=== PATIENT | male | born 1965 | race Caucasian/White ===

== ENCOUNTER → 2016-05-13 | Outpatient (REF) | payer OTHER ==
[2016-05-13 11:59] LABS: ALBUMIN 4.1 GM/DL (3.2-5.2); ALBUMIN/GLOBULIN RATIO 1.41 (1.00-1.93); ALKALINE PHOSPHATASE 85 U/L (45-117); ALT/SGPT 54 U/L (12-78); ANION GAP 9 MEQ/L (8-16); AST/SGOT 26 U/L (15-37); BILIRUBIN,TOTAL 0.6 MG/DL (0.2-1.0); BLOOD UREA NITROGEN 22 MG/DL (7-18); CALCIUM LEVEL 8.6 MG/DL (8.5-10.1); CARBON DIOXIDE LEVEL 31 MEQ/L (21-32); CHLORIDE LEVEL 103 MEQ/L (98-107); CHOLESTEROL LEVEL 209 MG/DL (<200); CREATININE FOR GFR 0.94 MG/DL (0.70-1.30); GLOMERULAR FILTRATION RATE > 60.0 (>56); GLUCOSE, FASTING 107 MG/DL (70-105); POTASSIUM SERUM 4.1 MEQ/L (3.5-5.1); SODIUM LEVEL 143 MEQ/L (136-145); TRIGLYCERIDES LEVEL 164 MG/DL (<150)
== END ==
LOC: M SFHCCLAY 07:02
PROVIDERS: ATTEND Family Medicine
DX: E78.2 Mixed hyperlipidemia (principal); E03.9 Hypothyroidism, unspecified

== ENCOUNTER → 2016-11-20 | Outpatient (REF) | payer OTHER ==
[2016-11-20 12:20] LABS: ALBUMIN/GLOBULIN RATIO 1.21 (1.00-1.93); ALKALINE PHOSPHATASE 84 U/L (45-117); ALT/SGPT 62 U/L (12-78); ANION GAP 7 MEQ/L (8-16); AST/SGOT 24 U/L (15-37); BILIRUBIN,TOTAL 0.6 MG/DL (0.2-1.0); BLOOD UREA NITROGEN 17 MG/DL (7-18); CALCIUM LEVEL 8.8 MG/DL (8.5-10.1); CARBON DIOXIDE LEVEL 31 MEQ/L (21-32); CHLORIDE LEVEL 103 MEQ/L (98-107); CHOLESTEROL LEVEL 208 MG/DL (<200); CREATININE FOR GFR 0.93 MG/DL (0.70-1.30); GLOMERULAR FILTRATION RATE > 60.0 (>56); GLUCOSE, FASTING 102 MG/DL (70-105); POTASSIUM SERUM 4.1 MEQ/L (3.5-5.1); SODIUM LEVEL 141 MEQ/L (136-145); TOTAL PROTEIN 7.3 GM/DL (6.4-8.2); TRIGLYCERIDES LEVEL 207 MG/DL (<150)
== END ==
LOC: M SFHCCLAY 07:05
PROVIDERS: ATTEND Family Medicine
DX: E78.2 Mixed hyperlipidemia (principal); E03.9 Hypothyroidism, unspecified

== ENCOUNTER → 2017-12-16 | Outpatient (REF) | payer OTHER ==
[2017-12-16 13:16] LABS: BASO % 0.4 % (0.0-1.0); EOS # 0.1 10^3/uL (0.0-0.50); EOS % 2.4 % (0.0-3.0); HEMOGLOBIN 15.3 g/dl (13.5-17.5); IMMATURE GRANULOCYTE % 0.4 % (0-3.0); LYMPH # 1.5 10^3/uL (1.5-4.5); MEAN CORPUSCULAR HEMOGLOBIN 31.3 pg (27.0-33.0); MEAN CORPUSCULAR HGB CONC 34.8 g/dl (32.0-36.5); MONO # 0.4 10^3/uL (0.0-0.8); MONO % 7.9 % (0.0-5.0); NEUTROPHILS # 3.4 10^3/uL (1.8-7.7); NEUTROPHILS % 61.9 % (36.0-66.0); PLATELET COUNT, AUTOMATED 189 10^3/uL (150-450); RED BLOOD COUNT 4.89 10^6/uL (4.30-6.10); RED CELL DISTRIBUTION WIDTH 12.4 % (11.5-14.5); WHITE BLOOD COUNT 5.5 10^3/uL (4.0-10.0)
[2017-12-16 13:35] LABS: ALBUMIN 4.2 GM/DL (3.2-5.2); ALBUMIN/GLOBULIN RATIO 1.45 (1.00-1.93); ALKALINE PHOSPHATASE 76 U/L (45-117); ALT/SGPT 52 U/L (12-78); ANION GAP 8 MEQ/L (8-16); AST/SGOT 24 U/L (7-37); BILIRUBIN,TOTAL 0.7 MG/DL (0.2-1.0); BLOOD UREA NITROGEN 24 MG/DL (7-18); CALCIUM LEVEL 9.2 MG/DL (8.5-10.1); CARBON DIOXIDE LEVEL 31 MEQ/L (21-32); CHLORIDE LEVEL 103 MEQ/L (98-107); CHOLESTEROL LEVEL 207 MG/DL (<200); CHOLESTEROL RISK RATIO 5.447 (<5); CREATININE FOR GFR 0.93 MG/DL (0.70-1.30); GLOMERULAR FILTRATION RATE > 60.0 (>56); GLUCOSE, FASTING 102 MG/DL (70-100); HDL CHOLESTEROL 38 MG/DL (>40); IRON (FE) 130 UG/DL (65-175); LDL CHOLESTEROL 138 MG/DL (<100); NON-HDL-C 169 MG/DL; SODIUM LEVEL 142 MEQ/L (136-145); TOTAL PROTEIN 7.1 GM/DL (6.4-8.2); TRIGLYCERIDES LEVEL 153 MG/DL (<150)
== END ==
LOC: M SFHCCLAY 06:58
DX: D64.9 Anemia, unspecified (principal); E78.2 Mixed hyperlipidemia; E03.9 Hypothyroidism, unspecified
CPT/HCPCS: 83540

== ENCOUNTER → 2018-06-10 | Outpatient (REF) | payer OTHER ==
[2018-06-10 11:22] LABS: BASO % 0.5 % (0.0-1.0); EOS # 0.1 10^3/uL (0.0-0.50); EOS % 1.4 % (0.0-3.0); HEMATOCRIT 44.1 % (42.0-52.0); HEMOGLOBIN 15.4 g/dl (13.5-17.5); LYMPH # 1.3 10^3/uL (1.5-4.5); LYMPH % 21.6 % (24.0-44.0); MEAN CORPUSCULAR HEMOGLOBIN 30.9 pg (27.0-33.0); MEAN CORPUSCULAR HGB CONC 34.9 g/dl (32.0-36.5); MEAN CORPUSCULAR VOLUME 88.4 fl (80.0-96.0); MONO # 0.4 10^3/uL (0.0-0.8); MONO % 7.1 % (0.0-5.0); NEUTROPHILS # 4.1 10^3/uL (1.8-7.7); NEUTROPHILS % 69.2 % (36.0-66.0); PLATELET COUNT, AUTOMATED 176 10^3/uL (150-450); RED BLOOD COUNT 4.99 10^6/uL (4.30-6.10); WHITE BLOOD COUNT 5.9 10^3/uL (4.0-10.0)
[2018-06-10 11:39] LABS: ALT/SGPT 37 U/L (12-78); BILIRUBIN,TOTAL 0.7 MG/DL (0.2-1.0); BLOOD UREA NITROGEN 19 MG/DL (7-18); CALCIUM LEVEL 8.8 MG/DL (8.5-10.1); CARBON DIOXIDE LEVEL 28 MEQ/L (21-32); CHLORIDE LEVEL 106 MEQ/L (98-107); CHOLESTEROL LEVEL 203 MG/DL (<200); CHOLESTEROL RISK RATIO 5.075 (<5); CREATININE FOR GFR 0.97 MG/DL (0.70-1.30); GLOMERULAR FILTRATION RATE > 60.0 (>56); GLUCOSE, FASTING 112 MG/DL (70-100); HDL CHOLESTEROL 40 MG/DL (>40); IRON (FE) 113 UG/DL (65-175); LDL CHOLESTEROL 135 MG/DL (<100); NON-HDL-C 163 MG/DL; POTASSIUM SERUM 3.9 MEQ/L (3.5-5.1); SODIUM LEVEL 141 MEQ/L (136-145); TRIGLYCERIDES LEVEL 140 MG/DL (<150)
== END ==
LOC: M SFHCCLAY 07:12
PROVIDERS: ATTEND Family Medicine
DX: D64.9 Anemia, unspecified (principal); E78.2 Mixed hyperlipidemia; E03.9 Hypothyroidism, unspecified

== ENCOUNTER → 2018-12-05 | Outpatient (REF) | payer OTHER ==
[2018-12-05 12:05] LABS: BASO % 0.5 % (0.0-1.0); EOS # 0.2 10^3/uL (0.0-0.5); EOS % 2.5 % (0.0-3.0); HEMATOCRIT 44.1 % (42.0-52.0); HEMOGLOBIN 15.3 g/dl (13.5-17.5); LYMPH # 1.5 10^3/uL (1.5-5.0); LYMPH % 25.5 % (24.0-44.0); MEAN CORPUSCULAR HEMOGLOBIN 31.1 pg (27.0-33.0); MEAN CORPUSCULAR HGB CONC 34.7 g/dl (32.0-36.5); MEAN CORPUSCULAR VOLUME 89.6 fl (80.0-96.0); MONO # 0.5 10^3/uL (0.0-0.8); MONO % 8.9 % (0.0-5.0); NEUTROPHILS # 3.7 10^3/uL (1.5-8.5); NEUTROPHILS % 62.3 % (36.0-66.0); PLATELET COUNT, AUTOMATED 193 10^3/uL (150-450); RED BLOOD COUNT 4.92 10^6/uL (4.30-6.10); WHITE BLOOD COUNT 5.9 10^3/uL (4.0-10.0)
[2018-12-05 12:20] LABS: THYROID STIMULATING HORMONE 1.79 uIU/ML (0.358-3.740)
== END ==
LOC: M SFHCCLAY 06:52
PROVIDERS: ATTEND Family Medicine
DX: D64.9 Anemia, unspecified (principal); E03.9 Hypothyroidism, unspecified

== ENCOUNTER → 2019-04-21 | Outpatient (CLI) | payer OTHER ==
[2019-04-21 17:08] LABS: BASO % 0.2 % (0.0-1.0); EOS # 0.1 10^3/uL (0.0-0.5); EOS % 0.5 % (0.0-3.0); HEMATOCRIT 47.2 % (42.0-52.0); HEMOGLOBIN 16.4 g/dl (13.5-17.5); LYMPH # 1.5 10^3/uL (1.5-5.0); LYMPH % 15.7 % (24.0-44.0); MEAN CORPUSCULAR HEMOGLOBIN 30.9 pg (27.0-33.0); MEAN CORPUSCULAR HGB CONC 34.7 g/dl (32.0-36.5); MEAN CORPUSCULAR VOLUME 88.9 fl (80.0-96.0); MONO # 0.5 10^3/uL (0.0-0.8); MONO % 5.6 % (0.0-5.0); NEUTROPHILS # 7.1 10^3/uL (1.5-8.5); NEUTROPHILS % 77.7 % (36.0-66.0); PLATELET COUNT, AUTOMATED 223 10^3/uL (150-450); RED BLOOD COUNT 5.31 10^6/uL (4.30-6.10); WHITE BLOOD COUNT 9.2 10^3/uL (4.0-10.0)
[2019-04-21 17:28] LABS: C REACTIVE PROTEIN QUANTITATIV < 0.30 MG/DL (0.00-0.30); URIC ACID 5.3 MG/DL (3.5-7.2)
[2019-04-25 00:07] LABS: Lyme Disease IgG/IgM Antibodie <0.91 ISR (0.00-0.90); Lyme Disease IgM Ab Quantitati <0.80 index (0.00-0.79)
== END ==
LOC: M LAB 15:37
PROVIDERS: ATTEND Family Medicine
DX: M25.561 Pain in right knee (principal)

== ENCOUNTER → 2019-04-21 | Outpatient (CLI) | payer OTHER ==
--- NOTE | 2019-04-21 14:42 | REP ---
Clinical: Acute right knee pain. Technique: AP, lateral, bilateral oblique and sunrise views of the right knee. Findings: Generalized age-related changes are appreciated including cortical irregularity to the femoral condyles and minimally increased sclerosis to the tibial plateau and posterior patellar margin. No significant osteophytosis. No acute fracture dislocation. Incidental flabella noted. No effusion. Impression: Generalized age-related changes to the right knee. No obvious acute process. Electronically Signed by Jose Miner MD 04/21/2019 02:34 P
== END ==
LOC: M CLY 14:10
PROVIDERS: ATTEND Family Medicine
DX: M17.11 Unilateral primary osteoarthritis, right knee (principal)

== ENCOUNTER → 2019-10-10 | Outpatient (REF) | payer OTHER ==
[2019-11-16 14:32] LABS: ALBUMIN 4.1 GM/DL (3.2-5.2); ALT/SGPT 39 U/L (12-78); BILIRUBIN,TOTAL 0.2 MG/DL (0.2-1.0); BLOOD UREA NITROGEN 22 MG/DL (7-18); CALCIUM LEVEL 8.8 MG/DL (8.5-10.1); CARBON DIOXIDE LEVEL 31 MEQ/L (21-32); CHLORIDE LEVEL 109 MEQ/L (98-107); CREATININE FOR GFR 0.91 MG/DL (0.70-1.30); GLOMERULAR FILTRATION RATE > 60.0 (>56); GLUCOSE, FASTING 102 MG/DL (70-100); POTASSIUM SERUM 4.2 MEQ/L (3.5-5.1); SODIUM LEVEL 143 MEQ/L (136-145); TOTAL PROTEIN 7.1 GM/DL (6.4-8.2)
== END ==
LOC: M SFHCCLAY 07:55
PROVIDERS: ATTEND Family Medicine
DX: E03.9 Hypothyroidism, unspecified (principal); E78.00 Pure hypercholesterolemia, unspecified

== ENCOUNTER → 2020-04-09 | Outpatient (REF) | payer OTHER ==
[2020-04-09 11:59] LABS: BASO % 0.4 % (0.0-1.0); EOS # 0.1 10^3/uL (0.0-0.5); EOS % 1.6 % (0.0-3.0); HEMATOCRIT 43.9 % (42.0-52.0); HEMOGLOBIN 14.8 g/dl (13.5-17.5); LYMPH # 1.2 10^3/uL (1.5-5.0); LYMPH % 20.6 % (24.0-44.0); MEAN CORPUSCULAR HGB CONC 33.7 g/dl (32.0-36.5); MEAN CORPUSCULAR VOLUME 88.9 fl (80.0-96.0); MONO # 0.5 10^3/uL (0.0-0.8); MONO % 8.3 % (0.0-5.0); NEUTROPHILS # 3.9 10^3/uL (1.5-8.5); NEUTROPHILS % 68.7 % (36.0-66.0); PLATELET COUNT, AUTOMATED 191 10^3/uL (150-450); RED BLOOD COUNT 4.94 10^6/uL (4.30-6.10); WHITE BLOOD COUNT 5.6 10^3/uL (4.0-10.0)
[2020-04-09 12:40] LABS: ALBUMIN 4.1 GM/DL (3.2-5.2); ALT/SGPT 43 U/L (12-78); BILIRUBIN,TOTAL 0.4 MG/DL (0.2-1.0); BLOOD UREA NITROGEN 26 MG/DL (7-18); CALCIUM LEVEL 9.7 MG/DL (8.5-10.1); CARBON DIOXIDE LEVEL 30 MEQ/L (21-32); CHLORIDE LEVEL 105 MEQ/L (98-107); CHOLESTEROL LEVEL 217 MG/DL (<200); CHOLESTEROL RISK RATIO 5.292 (<5); CREATININE FOR GFR 0.91 MG/DL (0.70-1.30); GLOMERULAR FILTRATION RATE > 60.0 (>56); GLUCOSE, FASTING 118 MG/DL (70-100); HDL CHOLESTEROL 41 MG/DL (>40); IRON (FE) 79 UG/DL (65-175); LDL CHOLESTEROL 153 MG/DL (<100); NON-HDL-C 176 MG/DL; POTASSIUM SERUM 4.4 MEQ/L (3.5-5.1); SODIUM LEVEL 141 MEQ/L (136-145); TOTAL PROTEIN 7.2 GM/DL (6.4-8.2); TRIGLYCERIDES LEVEL 115 MG/DL (<150)
== END ==
LOC: M SFHCCLAY 08:06
PROVIDERS: ATTEND Family Medicine
DX: E78.2 Mixed hyperlipidemia (principal); E03.9 Hypothyroidism, unspecified; D64.9 Anemia, unspecified

== ENCOUNTER → 2020-10-11 | Outpatient (REF) | payer OTHER ==
[2020-10-11 15:59] LABS: BASO % 0.3 % (0.0-1.0); EOS # 0.1 10^3/uL (0.0-0.5); EOS % 1.4 % (0.0-3.0); HEMATOCRIT 45.9 % (42.0-52.0); HEMOGLOBIN 15.5 g/dl (13.5-17.5); LYMPH # 1.5 10^3/uL (1.5-5.0); LYMPH % 24.2 % (24.0-44.0); MEAN CORPUSCULAR HEMOGLOBIN 30.1 pg (27.0-33.0); MEAN CORPUSCULAR HGB CONC 33.8 g/dl (32.0-36.5); MEAN CORPUSCULAR VOLUME 89.1 fl (80.0-96.0); MONO # 0.5 10^3/uL (0.0-0.8); MONO % 7.2 % (2.0-8.0); NEUTROPHILS # 4.2 10^3/uL (1.5-8.5); NEUTROPHILS % 66.4 % (36.0-66.0); PLATELET COUNT, AUTOMATED 217 10^3/uL (150-450); RED BLOOD COUNT 5.15 10^6/uL (4.30-6.10); WHITE BLOOD COUNT 6.4 10^3/uL (4.0-10.0)
[2020-10-11 16:17] LABS: HEMOGLOBIN A1c 5.5 %
[2020-10-11 16:41] LABS: ALBUMIN 4.2 GM/DL (3.2-5.2); ALT/SGPT 48 U/L (12-78); BILIRUBIN,TOTAL 0.5 MG/DL (0.2-1.0); BLOOD UREA NITROGEN 29 MG/DL (7-18); CALCIUM LEVEL 9.3 MG/DL (8.5-10.1); CARBON DIOXIDE LEVEL 32 MEQ/L (21-32); CHLORIDE LEVEL 105 MEQ/L (98-107); CHOLESTEROL LEVEL 212 MG/DL (<200); CHOLESTEROL RISK RATIO 5.047 (<5); CREATININE FOR GFR 0.94 MG/DL (0.70-1.30); GLOMERULAR FILTRATION RATE > 60.0 (>56); GLUCOSE, FASTING 114 MG/DL (70-100); HDL CHOLESTEROL 42 MG/DL (>40); IRON (FE) 88 UG/DL (65-175); LDL CHOLESTEROL 146 MG/DL (<100); NON-HDL-C 170 MG/DL; POTASSIUM SERUM 4.6 MEQ/L (3.5-5.1); SODIUM LEVEL 142 MEQ/L (136-145); TOTAL PROTEIN 7.5 GM/DL (6.4-8.2); TRIGLYCERIDES LEVEL 119 MG/DL (<150)
== END ==
LOC: M SFHCCLAY 08:00
PROVIDERS: ATTEND Family Medicine
DX: D64.9 Anemia, unspecified (principal); I10 Essential (primary) hypertension; R73.01 Impaired fasting glucose; E03.9 Hypothyroidism, unspecified

== ENCOUNTER → 2021-04-17 | Outpatient (REF) | payer OTHER ==
[2021-04-17 13:00] LABS: BASO % 0.4 % (0.0-1.0); EOS # 0.1 10^3/uL (0.0-0.5); EOS % 1.6 % (0.0-3.0); HEMATOCRIT 44.9 % (42.0-52.0); HEMOGLOBIN 15.1 g/dl (13.5-17.5); LYMPH # 1.5 10^3/uL (1.5-5.0); LYMPH % 21.4 % (24.0-44.0); MEAN CORPUSCULAR HEMOGLOBIN 29.8 pg (27.0-33.0); MEAN CORPUSCULAR HGB CONC 33.6 g/dl (32.0-36.5); MEAN CORPUSCULAR VOLUME 88.7 fl (80.0-96.0); MONO # 0.5 10^3/uL (0.0-0.8); MONO % 7.1 % (2.0-8.0); NEUTROPHILS # 4.7 10^3/uL (1.5-8.5); NEUTROPHILS % 69.4 % (36.0-66.0); PLATELET COUNT, AUTOMATED 232 10^3/uL (150-450); RED BLOOD COUNT 5.06 10^6/uL (4.30-6.10); WHITE BLOOD COUNT 6.8 10^3/uL (4.0-10.0)
[2021-04-17 13:36] LABS: HEMOGLOBIN A1c 5.4 %
[2021-04-17 13:37] LABS: ALBUMIN 3.8 GM/DL (3.2-5.2); ALT/SGPT 45 U/L (12-78); BILIRUBIN,TOTAL 0.7 MG/DL (0.2-1.0); BLOOD UREA NITROGEN 27 MG/DL (7-18); CALCIUM LEVEL 9.1 MG/DL (8.5-10.1); CARBON DIOXIDE LEVEL 29 MEQ/L (21-32); CHLORIDE LEVEL 104 MEQ/L (98-107); CHOLESTEROL LEVEL 179 MG/DL (<200); CHOLESTEROL RISK RATIO 3.977 (<5); CREATININE FOR GFR 0.98 MG/DL (0.70-1.30); GLOMERULAR FILTRATION RATE > 60.0 (>56); GLUCOSE, FASTING 100 MG/DL (70-100); HDL CHOLESTEROL 45 MG/DL (>40); IRON (FE) 121 UG/DL (65-175); LDL CHOLESTEROL 112 MG/DL (<100); NON-HDL-C 134 MG/DL; POTASSIUM SERUM 4.5 MEQ/L (3.5-5.1); SODIUM LEVEL 140 MEQ/L (136-145); TOTAL PROTEIN 7.2 GM/DL (6.4-8.2); TRIGLYCERIDES LEVEL 109 MG/DL (<150)
== END ==
LOC: M SFHCCLAY 07:53
PROVIDERS: ATTEND Family Medicine
DX: D64.9 Anemia, unspecified (principal); R73.01 Impaired fasting glucose; E03.9 Hypothyroidism, unspecified; E78.2 Mixed hyperlipidemia

== ENCOUNTER → 2021-10-01 | Outpatient (CLI) | payer OTHER ==
[~2021-10-01] MED LIST: CHLO125TA PO; INDO50CA91 PO; LEVO75TA4 PO; VITA500C24 PO
== END ==
LOC: M LABSMTC 09:11
PROVIDERS: ATTEND Anesthesiology
DX: Z01.812 Encounter for preprocedural laboratory examination (principal); Z20.822 Contact with and (suspected) exposure to COVID-19

== ENCOUNTER 2021-10-06 10:28 | Day surgery (SDC) | payer OTHER ==
[~2021-10-06] VITALS: Ht 167.6 cm; Wt 100.6 kg
[~2021-10-06 10:28] MED LIST changes: +NS 1,000 ML IV ONE
[2021-10-06] MEDS ORDERED: LIDOCAINE 2% 100MG/5ML SDV (FOR ANES.) As Ordered ONE (11:46)
[2021-10-06] MEDS ORDERED: propofoL 200 MG/20 ML VIAL As Ordered ONE (11:46)
[2021-10-06 12:20] VITALS: BP 135/77
== END 2021-10-06 12:25 | disposition home or self-care (01) ==
LOC: M OPP 10:28
PROVIDERS: ATTEND Internal Medicine Gastroenterology
DX: Z12.11 Encounter for screening for malignant neoplasm of colon (principal); K52.832 Lymphocytic colitis; K64.0 First degree hemorrhoids; K57.30 Diverticulosis of large intestine without perforation or abscess without bleeding; K63.89 Other specified diseases of intestine; I10 Essential (primary) hypertension; E03.9 Hypothyroidism, unspecified; M19.90 Unspecified osteoarthritis, unspecified site; J45.909 Unspecified asthma, uncomplicated; F17.220 Nicotine dependence, chewing tobacco, uncomplicated; Z79.899 Other long term (current) drug therapy

== ENCOUNTER → 2021-10-16 | Outpatient (REF) | payer OTHER ==
[~2021-10-16] MED LIST changes: -NS 1,000 ML IV ONE
[2021-10-16 12:37] LABS: ALBUMIN 3.9 GM/DL (3.2-5.2); ALT/SGPT 48 U/L (12-78); BILIRUBIN,TOTAL 0.7 MG/DL (0.2-1.0); BLOOD UREA NITROGEN 26 MG/DL (7-18); CALCIUM LEVEL 9.2 MG/DL (8.5-10.1); CARBON DIOXIDE LEVEL 31 MEQ/L (21-32); CHLORIDE LEVEL 102 MEQ/L (98-107); CREATININE FOR GFR 0.94 MG/DL (0.70-1.30); GLOMERULAR FILTRATION RATE > 60.0 (>56); GLUCOSE, FASTING 133 MG/DL (70-100); POTASSIUM SERUM 3.6 MEQ/L (3.5-5.1); SODIUM LEVEL 138 MEQ/L (136-145); TOTAL PROTEIN 7.6 GM/DL (6.4-8.2)
== END ==
LOC: M SFHCCLAY 07:38
PROVIDERS: ATTEND Family Medicine
DX: E03.9 Hypothyroidism, unspecified (principal); I10 Essential (primary) hypertension

== ENCOUNTER → 2022-04-09 | Outpatient (REF) | payer OTHER ==
[2022-04-09 12:37] LABS: BASO % 0.7 % (0.0-1.0); EOS # 0.1 10^3/uL (0.0-0.5); EOS % 1.8 % (0.0-3.0); HEMATOCRIT 45.8 % (42.0-52.0); HEMOGLOBIN 15.7 g/dl (13.5-17.5); LYMPH # 1.3 10^3/uL (1.5-5.0); LYMPH % 20.9 % (24.0-44.0); MEAN CORPUSCULAR HEMOGLOBIN 30.4 pg (27.0-33.0); MEAN CORPUSCULAR HGB CONC 34.3 g/dl (32.0-36.5); MEAN CORPUSCULAR VOLUME 88.8 fl (80.0-96.0); MONO # 0.5 10^3/uL (0.0-0.8); MONO % 7.5 % (2.0-8.0); NEUTROPHILS # 4.1 10^3/uL (1.5-8.5); NEUTROPHILS % 68.8 % (36.0-66.0); PLATELET COUNT, AUTOMATED 214 10^3/uL (150-450); RED BLOOD COUNT 5.16 10^6/uL (4.30-6.10)
[2022-04-09 12:57] LABS: IRON (FE) 107 UG/DL (65-175)
[2022-04-09 12:58] LABS: ALKALINE PHOSPHATASE 93 U/L (46-116); ALT/SGPT 42 U/L (7.0-40); AST/SGOT 29 U/L (<34); BILIRUBIN,TOTAL 0.8 MG/DL (0.3-1.2); BLOOD UREA NITROGEN 22 MG/DL (9-23); CALCIUM LEVEL 9.2 MG/DL (8.5-10.1); CARBON DIOXIDE LEVEL 31 MMOL/L (20-31); CHLORIDE LEVEL 101 MMOL/L (98-107); CHOLESTEROL LEVEL 200 MG/DL (<200); CREATININE FOR GFR 0.82 MG/DL (0.70-1.30); GLOMERULAR FILTRATION RATE > 60.0 (>56); GLUCOSE, FASTING 123 MG/DL (60-100); HDL CHOLESTEROL 42.5 MG/DL (>40); LDL CHOLESTEROL 132.3 MG/DL (<100); NON-HDL-C 158 MG/DL; POTASSIUM SERUM 4.1 MMOL/L (3.5-5.1); SODIUM LEVEL 139 MMOL/L (136-145); TOTAL PROTEIN 7.3 G/DL (5.7-8.2); TRIGLYCERIDES LEVEL 126 MG/DL (<150)
[2022-04-09 14:10] LABS: THYROID STIMULATING HORMONE 1.194 uIU/ML (0.55-4.78)
[2022-04-09 14:51] LABS: HEMOGLOBIN A1c 5.3 % (4.0-6.0)
== END ==
LOC: M SFHCCLAY 09:13
PROVIDERS: ATTEND Family Medicine
DX: I10 Essential (primary) hypertension (principal); E03.9 Hypothyroidism, unspecified; E78.2 Mixed hyperlipidemia; R73.01 Impaired fasting glucose; D64.9 Anemia, unspecified

== ENCOUNTER → 2022-10-06 | Outpatient (REF) | payer OTHER ==
[2022-10-06 12:08] LABS: HEMATOCRIT 44.5 % (42.0-52.0); HEMOGLOBIN 15.1 g/dl (13.5-17.5); MEAN CORPUSCULAR HEMOGLOBIN 29.8 pg (27.0-33.0); MEAN CORPUSCULAR HGB CONC 33.9 g/dl (32.0-36.5); MEAN CORPUSCULAR VOLUME 87.9 fl (80.0-96.0); PLATELET COUNT, AUTOMATED 207 10^3/uL (150-450); RED BLOOD COUNT 5.06 10^6/uL (4.30-6.10); WHITE BLOOD COUNT 5.9 10^3/uL (4.0-10.0)
[2022-10-06 12:13] LABS: ALBUMIN 4.2 G/DL (3.2-5.2); ALKALINE PHOSPHATASE 95 U/L (46-116); ALT/SGPT 36 U/L (7.0-40); AST/SGOT 17 U/L (<34); BILIRUBIN,TOTAL 0.7 MG/DL (0.3-1.2); BLOOD UREA NITROGEN 25 MG/DL (9-23); CALCIUM LEVEL 9.5 MG/DL (8.5-10.1); CARBON DIOXIDE LEVEL 32 MMOL/L (20-31); CHLORIDE LEVEL 102 MMOL/L (98-107); CHOLESTEROL LEVEL 196 MG/DL (<200); CHOLESTEROL RISK RATIO 5.06 (<5); GLOMERULAR FILTRATION RATE > 60.0 (>56); GLUCOSE, FASTING 104 MG/DL (60-100); HDL CHOLESTEROL 38.7 MG/DL (>40); LDL CHOLESTEROL 126.5 MG/DL (<100); NON-HDL-C 157.3 MG/DL; POTASSIUM SERUM 4.2 MMOL/L (3.5-5.1); SODIUM LEVEL 140 MMOL/L (136-145); THYROID STIMULATING HORMONE 1.823 uIU/ML (0.55-4.78); TOTAL PROTEIN 7.1 G/DL (5.7-8.2); TRIGLYCERIDES LEVEL 154 MG/DL (<150)
== END ==
LOC: M SFHCCLAY 07:49
PROVIDERS: ATTEND Family Medicine
DX: D64.9 Anemia, unspecified (principal); E78.2 Mixed hyperlipidemia; E03.9 Hypothyroidism, unspecified

== ENCOUNTER → 2023-04-09 | Outpatient (REF) | payer OTHER ==
[2023-04-09 11:46] LABS: HEMATOCRIT 46.4 % (42.0-52.0); MEAN CORPUSCULAR HEMOGLOBIN 30.1 pg (27.0-33.0); MEAN CORPUSCULAR HGB CONC 34.5 g/dl (32.0-36.5); MEAN CORPUSCULAR VOLUME 87.2 fl (80.0-96.0); PLATELET COUNT, AUTOMATED 220 10^3/uL (150-450); RED BLOOD COUNT 5.32 10^6/uL (4.30-6.10); WHITE BLOOD COUNT 5.9 10^3/uL (4.0-10.0)
[2023-04-09 12:07] LABS: HEMOGLOBIN A1c 5.6 % (4.0-6.0)
[2023-04-09 12:10] LABS: IRON (FE) 89 UG/DL (65-175)
[2023-04-09 12:13] LABS: ALKALINE PHOSPHATASE 101 U/L (46-116); ALT/SGPT 38 U/L (7.0-40); AST/SGOT 22 U/L (<34); BILIRUBIN,TOTAL 0.8 MG/DL (0.3-1.2); BLOOD UREA NITROGEN 26 MG/DL (9-23); CALCIUM LEVEL 9.6 MG/DL (8.5-10.1); CARBON DIOXIDE LEVEL 30 MMOL/L (20-31); CHLORIDE LEVEL 101 MMOL/L (98-107); CHOLESTEROL LEVEL 207 MG/DL (<200); CHOLESTEROL RISK RATIO 4.35 (<5); CREATININE FOR GFR 0.84 MG/DL (0.70-1.30); GLOMERULAR FILTRATION RATE > 60.0 (>56); GLUCOSE, FASTING 128 MG/DL (60-100); HDL CHOLESTEROL 47.5 MG/DL (>40); LDL CHOLESTEROL 133.1 MG/DL (<100); NON-HDL-C 159.5 MG/DL; POTASSIUM SERUM 4.2 MMOL/L (3.5-5.1); SODIUM LEVEL 136 MMOL/L (136-145); THYROID STIMULATING HORMONE 1.981 uIU/ML (0.55-4.78); TOTAL PROTEIN 7.5 G/DL (5.7-8.2); TRIGLYCERIDES LEVEL 132 MG/DL (<150)
== END ==
LOC: M SFHCCLAY 08:08
PROVIDERS: ATTEND Family Medicine
DX: I10 Essential (primary) hypertension (principal); E03.9 Hypothyroidism, unspecified; E78.2 Mixed hyperlipidemia; D64.9 Anemia, unspecified; R73.01 Impaired fasting glucose

== ENCOUNTER → 2023-07-23 | Outpatient (REF) | payer OTHER ==
[2023-07-23 12:22] LABS: HEMATOCRIT 44.4 % (42.0-52.0); HEMOGLOBIN 15.3 g/dl (13.5-17.5); MEAN CORPUSCULAR HEMOGLOBIN 29.5 pg (27.0-33.0); MEAN CORPUSCULAR HGB CONC 34.5 g/dl (32.0-36.5); MEAN CORPUSCULAR VOLUME 85.5 fl (80.0-96.0); PLATELET COUNT, AUTOMATED 209 10^3/uL (150-450); RED BLOOD COUNT 5.19 10^6/uL (4.30-6.10); WHITE BLOOD COUNT 5.4 10^3/uL (4.0-10.0)
[2023-07-23 12:32] LABS: ERYTHROCYTE SEDIMENTATION RATE 16 mm/hr (0-20)
[2023-07-23 12:40] LABS: INR 0.9; PROTHROMBIN TIME 11.9 SECONDS (12.5-14.5)
[2023-07-23 12:56] LABS: ALBUMIN 3.9 G/DL (3.2-5.2); ALKALINE PHOSPHATASE 101 U/L (46-116); ALT/SGPT 29 U/L (7.0-40); AST/SGOT 15 U/L (<34); BILIRUBIN,TOTAL 0.6 MG/DL (0.3-1.2); BLOOD UREA NITROGEN 25 MG/DL (9-23); CALCIUM LEVEL 9.2 MG/DL (8.5-10.1); CARBON DIOXIDE LEVEL 29 MMOL/L (20-31); CHLORIDE LEVEL 104 MMOL/L (98-107); CREATININE FOR GFR 0.76 MG/DL (0.70-1.30); GLOMERULAR FILTRATION RATE > 60.0 (>56); GLUCOSE, FASTING 126 MG/DL (60-100); SODIUM LEVEL 140 MMOL/L (136-145)
== END ==
LOC: M LABDRAWC 12:08
PROVIDERS: ATTEND Orthopaedic Surgery
DX: Z01.818 Encounter for other preprocedural examination (principal); M17.11 Unilateral primary osteoarthritis, right knee

== ENCOUNTER → 2023-07-27 | Outpatient (CLI) | payer OTHER | LOC: M CLY 08:15 | PROVIDERS: ATTEND Orthopaedic Surgery | DX: Z01.818 Encounter for other preprocedural examination (principal); M17.11 Unilateral primary osteoarthritis, right knee ==

== ENCOUNTER → 2023-10-06 | Outpatient (REF) | payer OTHER ==
[2023-10-06 13:05] LABS: HEMATOCRIT 42.9 % (42.0-52.0); HEMOGLOBIN 14.1 g/dl (13.5-17.5); MEAN CORPUSCULAR HEMOGLOBIN 28.6 pg (27.0-33.0); MEAN CORPUSCULAR HGB CONC 32.9 g/dl (32.0-36.5); PLATELET COUNT, AUTOMATED 219 10^3/uL (150-450); RED BLOOD COUNT 4.93 10^6/uL (4.30-6.10); WHITE BLOOD COUNT 5.5 10^3/uL (4.0-10.0)
[2023-10-06 13:22] LABS: HEMOGLOBIN A1c 5.4 % (4.0-6.0)
[2023-10-06 13:31] LABS: ALBUMIN 3.9 G/DL (3.2-5.2); ALKALINE PHOSPHATASE 98 U/L (46-116); ALT/SGPT 23 U/L (7.0-40); AST/SGOT 10 U/L (<34); BILIRUBIN,TOTAL 0.5 MG/DL (0.3-1.2); BLOOD UREA NITROGEN 21 MG/DL (9-23); CALCIUM LEVEL 9.4 MG/DL (8.5-10.1); CARBON DIOXIDE LEVEL 29 MMOL/L (20-31); CHLORIDE LEVEL 107 MMOL/L (98-107); CREATININE FOR GFR 0.69 MG/DL (0.70-1.30); GLOMERULAR FILTRATION RATE > 60.0 (>56); GLUCOSE, FASTING 103 MG/DL (60-100); POTASSIUM SERUM 4.4 MMOL/L (3.5-5.1); SODIUM LEVEL 141 MMOL/L (136-145); TOTAL PROTEIN 6.9 G/DL (5.7-8.2)
[2023-10-06 13:36] LABS: THYROID STIMULATING HORMONE 1.001 uIU/ML (0.55-4.78)
== END ==
LOC: M SFHCCLAY 07:15
PROVIDERS: ATTEND Family Medicine
DX: I10 Essential (primary) hypertension (principal); Z12.5 Encounter for screening for malignant neoplasm of prostate; E03.9 Hypothyroidism, unspecified; R73.01 Impaired fasting glucose; D64.9 Anemia, unspecified
CPT/HCPCS: 80053; 83036; 84443; 85027; G0103

== ENCOUNTER → 2024-03-09 | Outpatient (REF) | payer OTHER ==
[2024-03-09 12:27] LABS: HEMOGLOBIN A1c 5.3 % (4.0-6.0)
[2024-03-09 12:43] LABS: ALBUMIN 4.2 G/DL (3.2-5.2); ALKALINE PHOSPHATASE 98 U/L (40-129); ALT/SGPT 29 U/L (7.0-40); AST/SGOT 17 U/L (<34); BILIRUBIN,TOTAL 0.6 MG/DL (0.3-1.2); BLOOD UREA NITROGEN 22 MG/DL (9-23); CALCIUM LEVEL 9.8 MG/DL (8.5-10.1); CARBON DIOXIDE LEVEL 29 MMOL/L (20-31); CHLORIDE LEVEL 106 MMOL/L (98-107); CHOLESTEROL LEVEL 210 MG/DL (<200); CHOLESTEROL RISK RATIO 4.31 (<5); CREATININE FOR GFR 0.83 MG/DL (0.70-1.30); GLOMERULAR FILTRATION RATE > 60.0 (>56); GLUCOSE, FASTING 125 MG/DL (60-100); HDL CHOLESTEROL 48.7 MG/DL (>40); LDL CHOLESTEROL 146.9 MG/DL (<100); NON-HDL-C 161.3 MG/DL; POTASSIUM SERUM 4.5 MMOL/L (3.5-5.1); SODIUM LEVEL 144 MMOL/L (136-145); TOTAL PROTEIN 7.6 G/DL (5.7-8.2); TRIGLYCERIDES LEVEL 72 MG/DL (<150)
[2024-03-09 12:45] LABS: THYROID STIMULATING HORMONE 1.219 uIU/ML (0.55-4.78)
== END ==
LOC: M SFHCCLAY 07:28
PROVIDERS: ATTEND Family Medicine
DX: I10 Essential (primary) hypertension (principal); E03.9 Hypothyroidism, unspecified; E78.2 Mixed hyperlipidemia; R73.01 Impaired fasting glucose

== ENCOUNTER → 2024-09-07 | Outpatient (REF) | payer OTHER ==
[2024-09-07 14:08] LABS: PLATELET COUNT, AUTOMATED 185 10^3/uL (150-450)
[2024-09-07 14:46] LABS: ALT/SGPT 19 U/L (7.0-40); AST/SGOT 18 U/L (<34); CALCIUM LEVEL 9.5 MG/DL (8.3-10.6); CARBON DIOXIDE LEVEL 28 MMOL/L (20-31); CHLORIDE LEVEL 107 MMOL/L (98-107); CREATININE FOR GFR 0.86 MG/DL (0.70-1.30); GLOMERULAR FILTRATION RATE > 90.0 (>49); IRON (FE) 77 UG/DL (65-175); POTASSIUM SERUM 5.1 MMOL/L (3.5-5.1); SODIUM LEVEL 144 MMOL/L (136-145)
== END ==
LOC: M SFHCCLAY 07:26
PROVIDERS: ATTEND Family Medicine
DX: I10 Essential (primary) hypertension (principal); D64.9 Anemia, unspecified